=== PATIENT | male | born 1955 | race Caucasian/White ===

== ENCOUNTER 2017-02-05 07:57 | Day surgery (SDC) | payer BC ==
[~2017-02-05 07:57] MED LIST: Lactated Ringers 1,000 ML IV SCH; Lidocaine 1%/Sod Bicarbonate in NS 8.4% 1 ML Syringe PRN; Sodium Chloride 0.9% 10 ML Syringe FLUSH PRN
[2017-02-05] MEDS ORDERED: EPINEPHrine 1 MG/ML 30 ML MDV ONE (08:06)
[2017-02-05] MEDS ORDERED: Bupivacaine 0.25% 30 ML SDV ONE (08:06)
--- NOTE | 2017-02-05 08:17 | PCM.PREANE ---
Preanesthetic Assessment - Procedure Proposed Procedure: Left knee video arthroscopy - Anesthesia/Transfusion/Family Hx Anesthesia History: Prior Anesthesia Without Reaction Family History of Anesthesia Reaction: No (`) Transfusion History: No Prior Transfusion(s) - Review of Systems General: No Symptoms Pulmonary: No Symptoms Cardiovascular: No Symptoms Gastrointestinal: No symptoms Neurological: No Symptoms Other: Reports: None - Physical Assessment NPO Status Date: 02/04/17 NPO Status Time: 22:00 Pulse: 62 O2 Sat by Pulse Oximetry: 96 Respiratory Rate: 16 Blood Pressure: 151/88 Temperature: 36.7 C Height: 1.83 m Weight: 97.522 kg ASA Class: 2 Mental Status: Alert & Oriented x3 Airway Class: Mallampati = 1 Dentition: Reports: Normal Dentition Thyro-Mental Finger Breadths: 3 Mouth Opening Finger Breadths: 3 ROM/Head Extension: Full Lungs: Clear to auscultation, Normal respiratory effort Cardiovascular: Regular Rate, Regular Rhythm - Lab Values: Laboratory Last Values MRSA (PCR) Negative 01/20/17 09:17 - Allergies Allergies/Adverse Reactions: Allergies Allergy/AdvReac Type Severity Reaction Status Date / Time No Known Allergies Allergy Verified 02/04/17 12:34 - Blood Blood Available: No - Anesthesia Plan Pre-Op Medication Ordered: None - Acknowledgements Anesthesia Type Planned: General Anesthesia Pt an Appropriate Candidate for the Planned Anesthesia: Yes Alternatives and Risks of Anesthesia Discussed w Pt/Guardian: Yes Pt/Guardian Understands and Agrees with Anesthesia Plan: Yes PreAnesthesia Questionnaire - Past Health History Medical/Surgical History: Denies Medical/Surgical History HEENT History: Reports: None Cardiovascular History: Reports: None Respiratory History: Reports: None Gastrointestinal History: Reports: None Genitourinary History: Reports: None Neurological History: Reports: None Psychiatric History: Reports: None Endocrine/Metabolic History: Reports: None Hematologic History: Reports: None Immunologic History: Reports: None Oncologic (Cancer) History: Reports: None Dermatologic History: Reports: Cellulitis - Infectious Disease History Infectious Disease History: Reports: None - Past Surgical History HEENT Surgical History: Reports: None Cardiovascular Surgical History: Reports: None Respiratory Surgical History: Reports: None GI Surgical History: Reports: None Female Surgical History: Male Surgical History: Reports: None Endocrine Surgical History: Reports: None Neurological Surgical History: Reports: None Musculoskeletal Surgical History: Reports: Arthroscopic Knee, Shoulder Surgery Other Musculoskeletal Surgeries/Procedures:: Right knee video arthroscopy, Left shoulder arthroscopy Oncologic Surgical History: Reports: None Dermatological Surgical History: Reports: None - SUBSTANCE USE Smoking Status *Q: Never Smoker Second Hand Smoke Exposure: No Recreational Drug Use History: No - HOME MEDS Home Medications: Home Meds . [No Known Home Meds] 06/27/16 [History] - CURRENT (IN HOUSE) MEDS Current Meds: Current Medications Lactated Ringer's (Ringers, Lactated) 1,000 mls @ 125 mls/hr IV ASDIRECTED PAMELA Stop: 02/05/17 23:00 Lidocaine/Sodium Bicarbonate (Buffered Lidocaine 1% In Ns 8.4%) 0.25 ml .XX ONETIME PRN PRN Reason: Prior to IV Start Stop: 02/05/17 18:00 Sodium Chloride (Saline Flush) 10 ml FLUSH ASDIRECTED PRN PRN Reason: Keep Vein Open Stop: 02/05/17 18:00
[2017-02-05] MEDS ORDERED: Propofol 200 MG/20 ML SDV ONE (08:44)
[2017-02-05] MEDS ORDERED: fentaNYL 250 MCG/5 ML SDV ONE (08:44)
[2017-02-05] MEDS ORDERED: Midazolam 1 MG/ML 2 ML SDV ONE (08:44)
[2017-02-05] MEDS ORDERED: Dexamethasone 4 MG/ML SDV ONE (08:45)
[2017-02-05] MEDS ORDERED: Lidocaine 1% 4 ML ONE (08:45)
[2017-02-05] MEDS ORDERED: Ondansetron 4 MG/2 ML SDV ONE (08:45)
[2017-02-05] MEDS ORDERED: ceFAZolin 1 GM Vial ONE (08:46)
[2017-02-05] MEDS ORDERED: ePHEDrine/Normal Saline 25 MG/5 ML Syringe ONE (09:18)
[2017-02-05] MEDS ORDERED: Triamcinolone Acetonide 40 MG/ML 1 ML MDV ONE (09:20)
--- NOTE | 2017-02-05 09:51 | PCM.POSTAN ---
POST ANESTHESIA ASSESSMENT - MENTAL STATUS Mental Status: alert, oriented - VITAL SIGNS Pulse Rate: 80 SaO2: 97 Resp Rate: 11 Blood Pressure: 142/87 Temperature: 37.2 C - RESPIRATORY Respiratory Status: respiratory rate WNL, airway patent, O2 saturation stable, supplemental oxygen - CARDIOVASCULAR CV Status: pulse rate WNL, blood pressure stable - GASTROINTESTINAL GI Status: no symptoms - PAIN Pain Score: 0 - POST OP HYDRATION Hydration Status: adequate & stable
[2017-02-05] MEDS ORDERED: Ondansetron 4 MG/2 ML SDV IVPUSH PRN (09:52)
[2017-02-05] MEDS ORDERED: Meperidine PF 50 MG/ML Syringe IVPUSH PRN (09:52)
[2017-02-05] MEDS ORDERED: fentaNYL 100 MCG/2 ML SDV IVPUSH PRN (09:52)
[2017-02-05] MEDS ORDERED: diphenhydrAMINE 50 MG/ML SDV IVPUSH PRN (09:52)
[2017-02-05] MEDS ORDERED: HYDROmorphone 0.5 MG/0.5 ML Syringe IVPUSH PRN (09:52)
[2017-02-05 11:11] VITALS: BP 137/69
[2017-02-05] MEDS ORDERED: Acetaminophen/HYDROcodone 325-5 MG Tab PO ONE (11:40)
--- NOTE | 2017-02-06 07:31 | PCM.OPNOTE ---
- General Post-Op/Procedure Note Date of Surgery/Procedure: 02/05/17 Operative Procedure(s): left knee arthroscopy with partial medial meniscectomy Pre Op Diagnosis: left knee medial meniscus tear Post-Op Diagnosis: same with chondrocalcinosis of medial and lateral tibial plateau and meniscus Anesthesia Technique: General LMA, Local Primary Surgeon: John Llanes Anesthesia Provider: Jake Bragg Bridge Welder: Rubina Forrest EBAndrea in mLs: 5 Complications: None Condition: Good
--- NOTE | 2017-02-06 08:02 | OR ---
DATE OF OPERATION: 02/05/2017 SURGEON: John Llanes MD OPERATION PERFORMED: Left knee arthroscopy with partial medial meniscectomy. PREOPERATIVE DIAGNOSIS: Left knee medial meniscus tear. POSTOPERATIVE DIAGNOSIS: Left knee medial meniscus tear with chondrocalcinosis of medial and lateral tibial plateaus and meniscus. ANESTHESIA: General LMA with local. ANESTHESIA PROVIDER: Jake Bragg. DISSOLVER OPERATOR: Rubina Forrest PA-C ESTIMATED BLOOD LOSS: Less than 5 mL. COMPLICATIONS: None. CONDITION: Stable. DESCRIPTION OF PROCEDURE: The patient was identified in the preop holding area. Proper site was marked and identified by the surgeon. The patient was taken back to the operating theater, where after adequate anesthesia, the patient's right lower extremity was placed in a well-leg hoyt and left lower extremity was placed in a C-clamp hoyt, and a nonsterile tourniquet was applied. The left lower extremity was then sterilely prepped and draped in the usual sterile fashion. OR-wide time- out was performed. The patient received 2 grams of IV Ancef. At this time, the left lower extremity was exsanguinated. Tourniquet was insufflated to 300 mmHg. Standard anterolateral portal incision was made. The scope trocar was introduced. The patellofemoral joint showed minor grade 1 chondromalacia changes. There were no loose or foreign bodies in the mediolateral gutter. Attention was turned to the medial compartment. With the use of a spinal needle, anteromedial portal was created. The probe was introduced, and there was noted to be a complete radial tear at the posterior third junction of the medial meniscus that was unstable and irreparable. At this time, the posterior third of the medial meniscus was removed back to a stable rim. The patient was noted to have softening of the medial tibial plateau as well as some chondrocalcinosis. ACL was found to be intact in the notch. Lateral side showed chondrocalcinosis of the lateral tibial plateau as well as the lateral meniscus. At this time, a minor amount of fat pad was resected back to a stable rim as it showed significant overgrowth. Excess saline was drained from the knee. A 3-0 nylon simple suture was used for closure of the skin. The patient had a sterile soft dressing applied and tolerated the procedure well. MMODAL /[id number]
== END 2017-02-05 11:01 | disposition home or self-care (01) ==
LOC: JD.SDS 07:57
PROVIDERS: ATTEND Orthopaedic Surgery
PROC: 0SBD4ZZ Excision of Left Knee Joint, Percutaneous Endoscopic Approach (ICD-10-PCS; principal; 2017-02-05)
DX: S83.242A Other tear of medial meniscus, current injury, left knee, initial encounter (principal); M11.262 Other chondrocalcinosis, left knee; Z98.890 Other specified postprocedural states
CPT/HCPCS: 29881; 87641; J0171; J0690; J1100; J2250; J2405; J3010; J3301; J7050; J7120; 01400; J2704; J3490

== ENCOUNTER 2017-02-17 11:03 | Day surgery (SDC) | payer BC ==
[2017-02-17] MEDS ORDERED: EPINEPHrine 1 MG/ML 30 ML MDV ONE (11:13)
[2017-02-17] MEDS ORDERED: Bupivacaine 0.25% 30 ML SDV ONE (11:13)
[2017-02-17] MEDS ORDERED: Iodine/Sodium Iodide 2% Tincture 30 ML Bottle ONE (11:13)
--- NOTE | 2017-02-17 11:31 | PCM.PREANE ---
Preanesthetic Assessment - Anesthesia/Transfusion/Family Hx Anesthesia History: Prior Anesthesia Without Reaction Family History of Anesthesia Reaction: No Transfusion History: No Prior Transfusion(s) - Review of Systems General: Malaise Pulmonary: No Symptoms Cardiovascular: No Symptoms Gastrointestinal: No symptoms Neurological: No Symptoms Other: Reports: None - Physical Assessment NPO Status Date: 02/17/17 NPO Status Time: 07:30 Pulse: 65 O2 Sat by Pulse Oximetry: 97 Respiratory Rate: 16 Blood Pressure: 150/80 Temperature: 36.9 C Height: 1.83 m Weight: 96.751 kg ASA Class: 2 Mental Status: Alert & Oriented x3 Airway Class: Mallampati = 1 Dentition: Reports: Broken Tooth/Teeth (left molar) Thyro-Mental Finger Breadths: 3 Mouth Opening Finger Breadths: 3 ROM/Head Extension: Full Lungs: Clear to auscultation, Normal respiratory effort Cardiovascular: Regular Rate, Regular Rhythm, No Murmurs - Allergies Allergies/Adverse Reactions: Allergies Allergy/AdvReac Type Severity Reaction Status Date / Time No Known Allergies Allergy Verified 02/05/17 08:32 - Blood Blood Available: No Product(s) Available: None - Anesthesia Plan Pre-Op Medication Ordered: None - Acknowledgements Anesthesia Type Planned: General Anesthesia Pt an Appropriate Candidate for the Planned Anesthesia: Yes Alternatives and Risks of Anesthesia Discussed w Pt/Guardian: Yes Pt/Guardian Understands and Agrees with Anesthesia Plan: Yes PreAnesthesia Questionnaire - Past Health History Medical/Surgical History: Denies Medical/Surgical History HEENT History: Reports: None Cardiovascular History: Reports: None Respiratory History: Reports: None Gastrointestinal History: Reports: None Genitourinary History: Reports: None Neurological History: Reports: None Psychiatric History: Reports: None Endocrine/Metabolic History: Reports: None Hematologic History: Reports: None Immunologic History: Reports: None Oncologic (Cancer) History: Reports: None Dermatologic History: Reports: Cellulitis - Infectious Disease History Infectious Disease History: Reports: None - Past Surgical History HEENT Surgical History: Reports: None Cardiovascular Surgical History: Reports: None Respiratory Surgical History: Reports: None GI Surgical History: Reports: None Male Surgical History: Reports: None Endocrine Surgical History: Reports: None Neurological Surgical History: Reports: None Musculoskeletal Surgical History: Reports: Arthroscopic Knee, Shoulder Surgery Other Musculoskeletal Surgeries/Procedures:: Right knee video arthroscopy, Left shoulder arthroscopy Oncologic Surgical History: Reports: None Dermatological Surgical History: Reports: None - SUBSTANCE USE Smoking Status *Q: Never Smoker Second Hand Smoke Exposure: No Days Per Week of Alcohol Use: 1 Number of Drinks Per Day: 1 Total Drinks Per Week: 1 Recreational Drug Use History: No - HOME MEDS Home Medications: Home Meds Hydrocodone/Acetaminophen [[place] 5-325 Tablet] 1 - 2 each PO Q6H PRN #40 tablet 02/05/17 [Rx] Aspirin 325 mg PO BID #84 tablet 02/06/17 [Rx]
[2017-02-17] MEDS ORDERED: Lidocaine 1%/Sod Bicarbonate in NS 8.4% 1 ML Syringe PRN (11:41)
[2017-02-17] MEDS ORDERED: Sodium Chloride 0.9% 10 ML Syringe FLUSH PRN (11:41)
[2017-02-17] MEDS ORDERED: Lactated Ringers 1,000 ML IV SCH (11:45)
[2017-02-17] MEDS ORDERED: Ondansetron 4 MG/2 ML SDV ONE (11:57)
[2017-02-17] MEDS ORDERED: Propofol 200 MG/20 ML SDV ONE (11:58)
[2017-02-17] MEDS ORDERED: Lidocaine 1% 4 ML ONE (11:58)
[2017-02-17] MEDS ORDERED: Midazolam 1 MG/ML 2 ML SDV ONE (11:58)
[2017-02-17] MEDS ORDERED: fentaNYL 250 MCG/5 ML SDV ONE (11:58)
[2017-02-17] MEDS ORDERED: HYDROmorphone 1 MG/ML Syringe ONE (12:53)
[2017-02-17] MEDS ORDERED: Ketorolac 30 MG/ML SDV IVPUSH PRN (13:38)
--- NOTE | 2017-02-17 13:40 | PCM.POSTAN ---
POST ANESTHESIA ASSESSMENT - MENTAL STATUS Mental Status: alert, oriented - VITAL SIGNS Pulse Rate: 83 SaO2: 94 Resp Rate: 14 Blood Pressure: 165/96 Temperature: 36.6 C - RESPIRATORY Respiratory Status: respiratory rate WNL, airway patent, O2 saturation stable, supplemental oxygen - CARDIOVASCULAR CV Status: pulse rate WNL, blood pressure stable - GASTROINTESTINAL GI Status: no symptoms - PAIN Pain Score: 2 - POST OP HYDRATION Hydration Status: adequate & stable - OBSERVATIONS Free Text/Narrative:: no anesthesia complications noted
[2017-02-17] MEDS ORDERED: fentaNYL 100 MCG/2 ML SDV IVPUSH PRN (13:45)
[2017-02-17] MEDS ORDERED: HYDROmorphone 0.5 MG/0.5 ML Syringe IVPUSH PRN (13:45)
[2017-02-17 16:38] VITALS: BP 146/82
--- NOTE | 2017-02-17 16:57 | CR ---
Chest: Portable view of the chest was obtained. Comparison: No previous study. PICC line is identified. PICC descends into a lateral thoracic vein and needs to be withdrawn hand repositioned. Distal end of the PICC line is not seen. Lungs are clear. Heart size and mediastinum are normal. No acute bony abnormality is seen. Impression: 1. PICC line on the right side which terminates within a lateral thoracic vein and needs to be withdrawn and repositioned. Diagnostic code #3
--- NOTE | 2017-02-17 17:46 | CR ---
Chest: Portable view of the chest was obtained. Comparison: Previous chest x-ray performed earlier on the same day (4:28 PM). Right-sided PICC line is seen which has been repositioned. Tip of PICC line now lies near the junction of the subclavian and right axillary vein. Chest remains unchanged. Impression: 1. Tip of PICC line at the junction of the subclavian right axillary vein. Diagnostic code #2
--- NOTE | 2017-02-17 18:49 | PCM.SN ---
- Free Text/Narrative Note: 02/17/2117 1832 1536 consent given for PICC line placement. Sterile prep and drape all persons with face mask and sterile gloves wearing sterile gown, gloves, hat, mask Picc line placed left upper arm unable to advance past clavicle move to right upper arm Picc line advanced to 54cm at skin. Chest X ray shows that Picc line double back in right upper arm. Pulled out 20cm and secured with stitches at 35 cm. Patient getting dressed when Picc line oozing blood at insertion site. Redressed and secured with suture tape and stitches. Picc line now at 31cm at skin. sterile dressing with bio gel timed and dated. Picc line confirmed placement at clavicle. Good blood return and flush with 10ml of saline. Procedure start 1536 and end at 1634. 20 ga. angio cath used to start procedure. Dilator used to thread the Picc line. Patient tolerated procedure well. No complains of. A [place] NXT 4F single lumen Ref [id number] Patient ready to be discharged
--- NOTE | 2017-02-19 22:56 | PCM.OPNOTE ---
- General Post-Op/Procedure Note Date of Surgery/Procedure: 02/17/17 Operative Procedure(s): left knee extensive synovectomy with irrigation Pre Op Diagnosis: septic left knee s/p arthroscopy Post-Op Diagnosis: Same Anesthesia Technique: General LMA Primary Surgeon: John Llanes Anesthesia Provider: Hero Scott Sightseeing Guide: Rubina Forrest in mLs: 10 Complications: None Condition: Good
--- NOTE | 2017-02-19 23:28 | OR ---
DATE OF OPERATION: 02/17/2017 SURGEON: John Llanes MD OPERATION PERFORMED: Left knee extensive synovectomy with irrigation and lavage. PREOPERATIVE DIAGNOSIS: Septic left knee arthritis, status post left knee arthroscopy. POSTOPERATIVE DIAGNOSIS: Septic left knee arthritis, status post left knee arthroscopy. ANESTHESIA: General LMA. ANESTHESIA PROVIDER: Hero Scott CRNA. HAND SIZER: Rubina Forrest PA-C. ESTIMATED BLOOD LOSS: 10 mL. COMPLICATIONS: None. CONDITION: Stable. DESCRIPTION OF PROCEDURE: The patient was identified in the preop holding area. Proper site was marked and identified by the surgeon. The patient was taken back to the operating theater where after adequate anesthesia, the patient's left lower extremity had a nonsterile tourniquet applied and was sterilely prepped and draped in the usual sterile fashion. OR time-out was performed. The patient received 2 g IV Ancef. The patient was on the supine table this time instead of within knee arthroscopy hoyt. At this time, left lower extremity was elevated and tourniquet was insufflated at 250 mmHg. The previous portal incisions were then incised and scope trocar was introduced. A posterolateral portal was then created for an outflow and there was noted to be significant synovitis with a small amount of purulence, although there was previous aspiration that had gotten out significant amount of purulent fluid. At this time, 9 L of saline were irrigated through the knee through all compartments and a near complete synovectomy was performed at this time, both the suprapatellar pouch and the fat pad and as best could be completed in the gutters as well. At this time, there was good bleeding in all of the tissues and once 9 L had been rinsed, the knee showed no signs of further synovitis. At this time, 3-0 nylon simple suture was used for closure of the skin. The patient had a sterile soft dressing applied and sent to PACU in stable condition. The patient will undergo IV antibiotics for at least 2 weeks, and then be switched to oral depending on sensitivities. MMODAL /[id number]
== END 2017-02-17 18:00 | disposition home or self-care (01) ==
LOC: JD.SDS 11:03
PROVIDERS: ATTEND Orthopaedic Surgery
DX: M00.9 Pyogenic arthritis, unspecified (principal); Z98.890 Other specified postprocedural states; Z79.82 Long term (current) use of aspirin; Z79.899 Other long term (current) drug therapy
CPT/HCPCS: 29876; 36415; 80053; 85025; 85652; 86140; 87070; 87205; 89050; 89060; J0171; J1170; J1885; J2250; J2405; J3010; J7120; 01400; 36569; 87077; 87186; A9270-GY; C1751; J2704; J3490

== ENCOUNTER 2017-03-30 06:55 | Day surgery (SDC) | payer BC ==
[2017-03-30] MEDS ORDERED: Propofol 200 MG/20 ML SDV ONE (07:34)
[2017-03-30] MEDS ORDERED: fentaNYL 250 MCG/5 ML SDV ONE (07:35)
[2017-03-30] MEDS ORDERED: Midazolam 1 MG/ML 2 ML SDV ONE (07:35)
[2017-03-30] MEDS ORDERED: Ondansetron 4 MG/2 ML SDV ONE (07:36)
[2017-03-30] MEDS ORDERED: Lidocaine 1% 4 ML ONE (07:36)
[2017-03-30] MEDS ORDERED: Dexamethasone 4 MG/ML 5 ML MDV ONE (07:37)
[2017-03-30] MEDS ORDERED: Bupivacaine 0.25% 10 ML SDV ONE (07:39)
[2017-03-30] MEDS ORDERED: EPINEPHrine 1 MG/ML 30 ML MDV ONE (07:40)
--- NOTE | 2017-03-30 07:47 | PCM.PREANE ---
Preanesthetic Assessment - Procedure Proposed Procedure: L knee video arthroscopy, lysis of adhesions with manipulation under anesthesia - Anesthesia/Transfusion/Family Hx Anesthesia History: Prior Anesthesia Without Reaction Family History of Anesthesia Reaction: No Transfusion History: No Prior Transfusion(s) Additional History: watching a slightly elevated creatinine (1.5) - Review of Systems General: No Symptoms Pulmonary: No Symptoms Cardiovascular: No Symptoms Gastrointestinal: No Symptoms Neurological: No Symptoms Other: Reports: None - Physical Assessment NPO Status Date: 03/29/17 NPO Status Time: 22:00 Pulse: 55 O2 Sat by Pulse Oximetry: 98 Respiratory Rate: 16 Blood Pressure: 135/77 Temperature: 36.9 C Height: 1.83 m Weight: 96.751 kg ASA Class: 2 Mental Status: Alert & Oriented x3 Airway Class: Mallampati = 1 Dentition: Reports: Normal Dentition Thyro-Mental Finger Breadths: 3 Mouth Opening Finger Breadths: 3 ROM/Head Extension: Full Lungs: Clear to Auscultation, Normal Respiratory Effort Cardiovascular: Regular Rate, Regular Rhythm - Lab Values: Laboratory Last Values MRSA (PCR) Negative 03/20/17 11:14 - Allergies Allergies/Adverse Reactions: Allergies Allergy/AdvReac Type Severity Reaction Status Date / Time No Known Allergies Allergy Verified 03/27/17 09:02 - Blood Blood Available: No Product(s) Available: None - Anesthesia Plan Pre-Op Medication Ordered: None - Acknowledgements Anesthesia Type Planned: General Anesthesia (LMA) Pt an Appropriate Candidate for the Planned Anesthesia: Yes Alternatives and Risks of Anesthesia Discussed w Pt/Guardian: Yes Pt/Guardian Understands and Agrees with Anesthesia Plan: Yes PreAnesthesia Questionnaire - Past Health History Medical/Surgical History: Denies Medical/Surgical History HEENT History: Reports: None Cardiovascular History: Reports: None Respiratory History: Reports: None Gastrointestinal History: Reports: None Genitourinary History: Reports: None Musculoskeletal History: Reports: Other (See Below) Other Musculoskeletal History: Left meniscus tear Neurological History: Reports: None Psychiatric History: Reports: None Endocrine/Metabolic History: Reports: None Hematologic History: Reports: None Immunologic History: Reports: None Oncologic (Cancer) History: Reports: None Dermatologic History: Reports: Cellulitis - Infectious Disease History Infectious Disease History: Reports: None - Past Surgical History Head Surgeries/Procedures: Reports: None HEENT Surgical History: Reports: None Cardiovascular Surgical History: Reports: None Respiratory Surgical History: Reports: None GI Surgical History: Reports: None Female Surgical History: Male Surgical History: Reports: None Endocrine Surgical History: Reports: None Musculoskeletal Surgical History: Reports: Other (See Below) Other Musculoskeletal Surgeries/Procedures:: Left knee video arthroscopy with meniscectomy, shoulder surgery Dermatological Surgical History: Reports: None - SUBSTANCE USE Smoking Status *Q: Never Smoker Tobacco Use Within Last Twelve Months: No Second Hand Smoke Exposure: No Days Per Week of Alcohol Use: 1 Number of Drinks Per Day: 1 Total Drinks Per Week: 1 Recreational Drug Use History: No - HOME MEDS Home Medications: Home Meds Hydrocodone/Acetaminophen [[place] 5-325 Tablet] 1 - 2 each PO Q6H PRN #40 tablet 03/30/17 [Rx] Aspirin 325 mg PO BID #60 tablet 03/31/17 [Rx] - CURRENT (IN HOUSE) MEDS Current Meds: Current Medications Lactated Ringer's (Ringers, Lactated) 1,000 mls @ 125 mls/hr IV ASDIRECTED PAMELA Stop: 03/30/17 23:00 Last Admin: 03/30/17 07:30 Dose: 125 mls/hr Lidocaine/Sodium Bicarbonate (Buffered Lidocaine 1% In Ns 8.4%) 0.25 ml .XX ONETIME PRN PRN Reason: Prior to IV Start Stop: 03/30/17 18:00 Last Admin: 03/30/17 07:29 Dose: 0.25 ml Sodium Chloride (Saline Flush) 10 ml FLUSH ASDIRECTED PRN PRN Reason: Keep Vein Open Stop: 03/30/17 18:00 Discontinued Medications Bupivacaine HCl (Sensorcaine-Mpf 0.25%) Confirm Administered Dose 10 ml .ROUTE .STK-MED ONE Stop: 03/30/17 07:40 Dexamethasone (Dexamethasone) Confirm Administered Dose 20 mg .ROUTE .STK-MED ONE Stop: 03/30/17 07:38 Epinephrine HCl (Adrenalin 1:1000) Confirm Administered Dose 30 mg .ROUTE .STK- MED ONE Stop: 03/30/17 07:41 Fentanyl (Sublimaze) Confirm Administered Dose 250 mcg .ROUTE .STK-MED ONE Stop: 03/30/17 07:36 Lidocaine HCl (Xylocaine-Mpf 1%) Confirm Administered Dose 4 mls @ as directed .ROUTE .STK-MED ONE Stop: 03/30/17 07:37 Midazolam HCl (Versed 1 Mg/Ml) Confirm Administered Dose 2 mg .ROUTE .STK-MED ONE Stop: 03/30/17 07:36 Ondansetron HCl (Zofran) Confirm Administered Dose 4 mg .ROUTE .STK-MED ONE Stop: 03/30/17 07:37 Propofol (Diprivan 20 Ml) Confirm Administered Dose 200 mg .ROUTE .STK-MED ONE Stop: 03/30/17 07:35
[2017-03-30] MEDS ORDERED: ceFAZolin 1 GM Vial ONE (08:22)
[2017-03-30] MEDS ORDERED: HYDROmorphone 1 MG/ML Syringe ONE (08:33)
--- NOTE | 2017-03-30 09:25 | PCM.POSTAN ---
POST ANESTHESIA ASSESSMENT - MENTAL STATUS Mental Status: Alert, Oriented - VITAL SIGNS Pulse Rate: 92 SaO2: 100 Resp Rate: 10 Blood Pressure: 166/108 (shivering) Temperature: 36.6 C - RESPIRATORY Respiratory Status: Respiratory Rate WNL, Airway Patent, O2 Saturation Stable, Supplemental Oxygen - CARDIOVASCULAR CV Status: Pulse Rate WNL, Blood Pressure Stable - GASTROINTESTINAL GI Status: No Symptoms - PAIN Pain Score: 5 (fentanyl given) - POST OP HYDRATION Hydration Status: Adequate & Stable
[2017-03-30] MEDS ORDERED: Ondansetron 4 MG/2 ML SDV IVPUSH PRN (09:27)
[2017-03-30] MEDS ORDERED: diphenhydrAMINE 50 MG/ML SDV IVPUSH PRN (09:27)
[2017-03-30] MEDS ORDERED: Meperidine PF 50 MG/ML Syringe IVPUSH PRN (09:27)
[2017-03-30] MEDS ORDERED: Acetaminophen/HYDROcodone 325-5 MG Tab PO SCH (10:00)
[2017-03-30] MEDS ORDERED: fentaNYL 100 MCG/2 ML SDV IVPUSH PRN (10:30)
[2017-03-30] MEDS ORDERED: HYDROmorphone 0.5 MG/0.5 ML Syringe IVPUSH PRN (10:30)
[2017-03-30 11:39] VITALS: BP 152/78
--- NOTE | 2017-03-30 14:57 | PCM48HPAN ---
Post Anesthesia Note - EVALUATION WITHIN 48HRS OF ANESTHETIC Vital Signs in Normal Range: Yes Patient Participated in Evaluation: Yes Respiratory Function Stable: Yes Airway Patent: Yes Cardiovascular Function Stable: Yes Hydration Status Stable: Yes Pain Control Satisfactory: Yes Nausea and Vomiting Control Satisfactory: Yes Mental Status Recovered: Yes
--- NOTE | 2017-04-02 11:56 | PCM.OPNOTE ---
- General Post-Op/Procedure Note Date of Surgery/Procedure: 03/30/17 Operative Procedure(s): left knee video arthroscopy with lysis of adhesions and left knee manipulation under anesthesia Pre Op Diagnosis: left knee arthrofibrosis Post-Op Diagnosis: same with grade 2/3 chondromalacia of the patella and medial compartment Anesthesia Technique: General LMA Primary Surgeon: John Llanes Anesthesia Provider: Jake Bragg EBL in mLs: 5 Complications: None Condition: Good
--- NOTE | 2017-04-02 12:33 | OR ---
DATE OF OPERATION: 03/30/2017 SURGEON: John Llanes MD OPERATION PERFORMED: Left knee video arthroscopy with lysis of adhesions and left knee manipulation under anesthesia. PREOPERATIVE DIAGNOSIS: Left knee arthrofibrosis. POSTOPERATIVE DIAGNOSIS: Left knee arthrofibrosis with grade 2/3 chondromalacia of the patella and medial compartment. ANESTHESIA: General LMA. ANESTHESIA PROVIDER: Jake Bragg. GREEN MEAT GRADER: None. ESTIMATED BLOOD LOSS: Less than 5 mL. COMPLICATIONS: None. CONDITION: Stable. DESCRIPTION OF PROCEDURE: The patient was identified in the preop holding area. Proper site was marked and identified by the surgeon. The patient was taken back to the operating theater, where after adequate anesthesia, the patient's right lower extremity was placed in a well-leg hoyt and the left lower extremity had a nonsterile tourniquet applied and then was placed in a C-clamp hoyt. The left lower extremity was then sterilely prepped and draped in the usual sterile fashion. OR-wide time-out was performed. The patient received 2 grams of IV Ancef. At this time, the left lower extremity was exsanguinated. Tourniquet was insufflated to 250 mmHg. The previous anterolateral portal incision was utilized again. Scope trocar was introduced. There was noted to be a large amount of adhesions noted in the suprapatellar pouch as well as the medial compartment and near the retropatellar fat pad. At this time, the anteromedial portal was created. There was noted to be grade 2/3 chondromalacia of the patellofemoral joint along with the medial compartment. There were no loose or foreign bodies. At this time, the full-radius resector was used for the lysis of adhesions in the suprapatellar pouch and near the fat pad as well as the medial and lateral gutter. Once it was found to be significantly removed, the cursory examination showed, again, the chondromalacia, but there were no signs of purulence throughout the knee. At this time, the scope trocar was removed. The patient's knee was then manipulated. The patient had full extension and had 125 degrees of flexion by the time it was fully manipulated. Sterile dressing was then placed after 3-0 nylon simple suture was used for closure of the skin. The patient was sent to the PACU in a stable condition. He tolerated the procedure well. MMODAL /[id number]
== END 2017-03-30 11:25 | disposition home or self-care (01) ==
LOC: JD.SDS 06:55
PROVIDERS: ATTEND Orthopaedic Surgery
DX: M24.662 Ankylosis, left knee (principal); M22.42 Chondromalacia patellae, left knee; Z98.890 Other specified postprocedural states
CPT/HCPCS: 29884; 87641; J0171; J0690; J1100; J1170; J2250; J2405; J3010; J7120; 01400; J2704

== ENCOUNTER 2018-04-20 10:58 | Emergency (ER) | payer BC ==
[2018-04-20] MEDS ORDERED: Sodium Chloride 0.9% 10 ML Syringe FLUSH PRN ×2 (11:49→13:22)
--- NOTE | 2018-04-20 11:50 | EDM.PDOC ---
ED HPI GENERAL MEDICAL PROBLEM - General Chief Complaint: Upper Extremity Injury/Pain Stated Complaint: LEFT ARM/SHOULDER PAIN POST SURGERY Time Seen by Provider: 04/20/18 11:40 Source of Information: Reports: Patient History Limitations: Reports: No Limitations - History of Present Illness INITIAL COMMENTS - FREE TEXT/NARRATIVE: 63-year-old male presents for evaluation and treatment of left shoulder pain. Patient had a meniscal repair to the right knee [address] Llanes[address] He followed up with Jessica Forrest today. He informed her of some chest pain he felt Thursday. He states that it "felt like an MD ." he reports that he took some Tylenol and iced the area. He attributed this to golfing on Thursday. He reports Thursday he felt better. He states the chest pain he felt on Thursday was on the left lateral chest. He is now appreciated pain to his left anterior shoulder. His only present when breathing. Reports that he was seen for his follow-up with Jessica Forrest today. She performed full range of motion to the shoulder and could not elicit any pain. Sent to the ED for rule out PE. Patient denies any chest pain currently. He states he only has pain to the left anterior shoulder with deep breathing. No shortness of breath, nausea, vomiting , lightheadedness, dizziness, syncope, cough, hemoptysis or diaphoresis. No recent fevers, cold symptoms. Patient reports he did have some swelling in the right foot after surgery. Removed the Lincoln bandage and that seem to resolve the swelling. Minor discomfort to the leg, no major pain to the calf. No history of any PE or DVT blood clots. No known family history of any clotting disorders. He he has been taking 2 325 milligram aspirin daily since the surgery. 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 Musculoskeletal History: Reports: Other (See Below) Other Musculoskeletal History: Left meniscus tear Neurological History: Reports: None Psychiatric History: Reports: None Endocrine/Metabolic History: Reports: None Hematologic History: Reports: None Immunologic History: Reports: None Oncologic (Cancer) History: Reports: None Dermatologic History: Reports: Cellulitis - Infectious Disease History Infectious Disease History: Reports: None - Past Surgical History Head Surgeries/Procedures: Reports: None HEENT Surgical History: Reports: None Cardiovascular Surgical History: Reports: None Respiratory Surgical History: Reports: None GI Surgical History: Reports: None Male Surgical History: Reports: None Endocrine Surgical History: Reports: None Neurological Surgical History: Reports: None Musculoskeletal Surgical History: Reports: Arthroscopic Knee, Shoulder Surgery Other Musculoskeletal Surgeries/Procedures:: Right and left knee video arthroscopy, Left shoulder arthroscopy Oncologic Surgical History: Reports: None Dermatological Surgical History: Reports: None Social & Family History - Family History Family Medical History: Noncontributory - Tobacco Use Smoking Status *Q: Never Smoker - Caffeine Use Caffeine Use: Reports: None - Recreational Drug Use Recreational Drug Use: No Review of Systems - Review of Systems Review Of Systems: See Below Constitutional: Denies: Diaphoresis, Fever Respiratory: Denies: Shortness of Breath, Cough, Sputum, Hemoptysis Cardiovascular: Reports: Chest Pain (Thursday left lateral chest). Denies: Lightheadedness, Syncope GI/Abdominal: Denies: Abdominal Pain, Nausea, Vomiting Musculoskeletal: Reports: Shoulder Pain (Left anterior shoulder), Joint Pain ( Recent right meniscal repair surgery done about 2 weeks ago. Parents pain to the knee). Denies: Neck Pain, Leg Pain (No pain to the right calf, initially experienced swelling to the right foot that resolved after removal of an Lincoln bandage.) Neurological: Denies: Seizure, Syncope ED EXAM, GENERAL - Physical Exam Exam: See Below Exam Limited By: No Limitations General Appearance: Alert, WD/WN, No Apparent Distress Eye Exam: Bilateral Eye: Normal Inspection Nose: Normal Inspection Throat/Mouth: Normal Inspection, Normal Lips, Normal Voice, No Airway Compromise Neck: Normal Inspection, Non-Tender, Full Range of Motion Respiratory/Chest: No Respiratory Distress, Lungs Clear, Normal Breath Sounds, Chest Non-Tender Cardiovascular: Normal Peripheral Pulses, Regular Rate, Rhythm, No Murmur GI/Abdominal: Soft, Non-Tender Extremities: Normal Inspection, Non-Tender (lef shoulder), Normal Capillary Refill, Other (Scars from the recent meniscal repair surgery to the right knee) . No: Espinoza's Sign Neurological: Alert, Oriented, Normal Cognition Psychiatric: Normal Affect, Normal Mood Skin Exam: Warm, Dry, Normal Color EKG INTERPRETATION EKG Date: 04/20/18 Time: 11:45 Rhythm: NSR Rate (Beats/Min): 54 [place]: Normal P-Wave: Present QRS: Normal ST-T: Normal QT: Normal EKG Interpretation Comments: NSR at 54 bpm. No acute changes. Reviewed by myself and Dr. Liu. Course - Vital Signs Last Recorded V/S: Last Vital Signs Temp 98.6 F 04/20/18 11:10 Pulse 79 04/20/18 15:28 Resp 16 04/20/18 15:28 BP 147/105 H 04/20/18 15:28 Pulse Ox 98 04/20/18 15:28 - Orders/Labs/Meds Orders: Active Orders 24 hr Category Date Time Status Cardiac Monitoring [RC] . DIRECTED Care 04/20/18 11:47 Active EKG Documentation Completion [RC] ASDIRECTED Care 04/20/18 11:47 Active Peripheral IV Care [RC] . DIRECTED Care 04/20/18 11:49 Active Peripheral IV Insertion Adult [OM.PC] Routine Oth 04/20/18 11:49 Ordered EKG 12 Lead [EK] Stat Ther 04/20/18 11:47 Ordered Labs: Laboratory Tests 04/20/18 04/20/18 04/20/18 Range/Units 12:10 12:10 12:10 WBC 10.31 H (4.23-9.07) K/mm3 RBC 4.75 (4.63-6.08) M/mm3 Hgb 15.7 (13.7-17.5) gm/L Hct 45.9 (40.1-51.0) % MCV 96.6 H (79.0-92.2) fl MCH 33.1 H (25.7-32.2) pg MCHC 34.2 (32.2-35.5) g/dl RDW Std Deviation 42.3 (35.1-43.9) fL Plt Count 175 (163-337) K/mm3 MPV 11.1 (9.4-12.3) fl Neut % (Auto) 70.7 H (34.0-67.9) % Lymph % (Auto) 18.1 L (21.8-53.1) % Alger % (Auto) 9.1 (5.3-12.2) % Eos % (Auto) 1.4 (0.8-7.0) Baso % (Auto) 0.3 (0.1-1.2) % Neut # (Auto) 7.29 H (1.78-5.38) K/mm3 Lymph # (Auto) 1.87 (1.32-3.57) K/mm3 Alger # (Auto) 0.94 H (0.30-0.82) K/mm3 Eos # (Auto) 0.14 (0.04-0.54) K/mm3 Baso # (Auto) 0.03 (0.01-0.08) K/mm3 PT (9.5-12.1) SECONDS INR APTT (24-31) SECONDS D-Dimer, Quantitative 0.98 H (0.19-0.50) mg/L Sodium 142 (136-145) mEq/L Potassium 4.2 (3.5-5.1) mEq/L Chloride 108 H (98-107) mEq/L Carbon Dioxide 26 (21-32) mEq/L Anion Gap 12.2 (5-15) BUN 23 H (7-18) mg/dL Creatinine 1.4 H (0.7-1.3) mg/dL Est Cr Clr Drug Dosing 59.28 mL/min Estimated GFR (MDRD) 51 (>60) mL/min BUN/Creatinine Ratio 16.4 (14-18) Glucose 106 (80-115) mg/dL Calcium 9.8 (8.5-10.1) mg/dL Total Bilirubin 1.2 H (0.2-1.0) mg/dL AST 21 (15-37) U/L ALT 23 (16-63) U/L Alkaline Phosphatase 79 (46-116) U/L CK-MB (CK-2) (0-3.6) ng/ml Troponin I 0.046 (0.00-0.056) ng/mL NT-Pro-B Natriuret Pep (0-125) pg/mL Total Protein 7.5 (6.4-8.2) g/dl Albumin 3.5 (3.4-5.0) g/dl Globulin 4.0 gm/dL Albumin/Globulin Ratio 0.9 L (1-2) 04/20/18 04/20/18 04/20/18 Range/Units 12:10 12:19 12:19 WBC (4.23-9.07) K/mm3 RBC (4.63-6.08) M/mm3 Hgb (13.7-17.5) gm/L Hct (40.1-51.0) % MCV (79.0-92.2) fl MCH (25.7-32.2) pg MCHC (32.2-35.5) g/dl RDW Std Deviation (35.1-43.9) fL Plt Count (163-337) K/mm3 MPV (9.4-12.3) fl Neut % (Auto) (34.0-67.9) % Lymph % (Auto) (21.8-53.1) % Alger % (Auto) (5.3-12.2) % Eos % (Auto) (0.8-7.0) Baso % (Auto) (0.1-1.2) % Neut # (Auto) (1.78-5.38) K/mm3 Lymph # (Auto) (1.32-3.57) K/mm3 Alger # (Auto) (0.30-0.82) K/mm3 Eos # (Auto) (0.04-0.54) K/mm3 Baso # (Auto) (0.01-0.08) K/mm3 PT 10.2 (9.5-12.1) SECONDS INR 0.93 APTT 27 (24-31) SECONDS D-Dimer, Quantitative (0.19-0.50) mg/L Sodium (136-145) mEq/L Potassium (3.5-5.1) mEq/L Chloride (98-107) mEq/L Carbon Dioxide (21-32) mEq/L Anion Gap (5-15) BUN (7-18) mg/dL Creatinine (0.7-1.3) mg/dL Est Cr Clr Drug Dosing mL/min Estimated GFR (MDRD) (>60) mL/min BUN/Creatinine Ratio (14-18) Glucose (80-115) mg/dL Calcium (8.5-10.1) mg/dL Total Bilirubin (0.2-1.0) mg/dL AST (15-37) U/L ALT (16-63) U/L Alkaline Phosphatase (46-116) U/L CK-MB (CK-2) 0.6 (0-3.6) ng/ml Troponin I (0.00-0.056) ng/mL NT-Pro-B Natriuret Pep 27 (0-125) pg/mL Total Protein (6.4-8.2) g/dl Albumin (3.4-5.0) g/dl Globulin gm/dL Albumin/Globulin Ratio (1-2) Meds: Medications Discontinued Medications Generic Name Dose Route Start Last Admin Trade Name Freq PRN Reason Stop Dose Admin Sodium Chloride 100 mls @ 75 mls/hr 04/20/18 13:30 04/20/18 13:33 Normal Saline IV 75 mls/hr ASDIRECTED PAMELA Administration Iopamidol 50 ml 04/20/18 13:22 04/20/18 13:33 Isovue-370 (76%) IVPUSH 04/20/18 13:23 50 ml ONETIME ONE Administration Iopamidol 100 ml 04/20/18 13:22 04/20/18 13:33 Isovue-370 (76%) IVPUSH 04/20/18 13:23 50 ml ONETIME ONE Administration Rivaroxaban 15 mg 04/20/18 14:58 04/20/18 15:21 Xarelto PO 04/20/18 14:59 15 mg ONETIME ONE Administration Sodium Chloride 10 ml 04/20/18 11:49 04/20/18 12:10 Saline Flush FLUSH 10 ml ASDIRECTED PRN Administration Keep Vein Open Sodium Chloride 10 ml 04/20/18 13:22 04/20/18 13:33 Saline Flush FLUSH 10 ml ONETIME PRN Administration IV FLUSH - Radiology Interpretation Free Text/Narrative:: chest xray shows no acute intrathoracic process. CT chest Technique: Multiple axial sections were obtained through the chest. Intravenous contrast was utilized. Study has been performed as a pulmonary angiogram protocol. Findings: Filling defect is noted within the distal right main pulmonary artery extending into a segmental right upper and segmental lower lobe pulmonary artery. Other smaller pulmonary emboli are seen within subsegmental branches within the right lower lung as well as subsegmental pulmonary emboli being seen within branches of the left lower lung. Mediastinum and hilar regions show no adenopathy or mass. Mild coronary artery calcification is seen. Heart shows no pericardial thickening. Small portion of the visualized upper abdominal structures are within normal limits. Lung window setting shows no acute parenchymal change within either lung. Bone window settings were reviewed which appear within normal limits for the patient's age. Impression: 1. Fairly extensive pulmonary emboli within the right upper lung and within both lower lungs. 2. Other incidental findings as noted above. - Re-Assessments/Exams Free Text/Narrative Re-Assessment/Exam: 04/20/18 13:18 Reviewed the EKG and labs with patient. Will obtain CT pulmonary angiographic. Patient has for the most part pain-free declines any pain medication at this point. 04/20/18 14:[address] with the patient. Recommending anticoagulation for multiple PEs. Discussed risks and benefits of Coumadin versus finger anticoagulates. Discussed cost, risk of bleeding and reversal agents. Opts to go with a newer agent. Discussed the case with Dr. Fine, hospitalist. Does not feel the patient needs to come in and patient does not want to come into the hospital. He is recommending Eliquis or Xarelto for treatment of PEs. Does not feel that he needs a day additional testing as this was a provoked PE. Recommended stopping aspirin. Discussed with the patient. We will start him on xarelto. Contacted his pharmacy but they were unable to tell me how much the costs would be without having a prescription to run through his insurance. I will start him on xarelto today and have him follow-up in the clinic within 1 week. Tylenol as needed for pain. Discharge instructions as documented. Departure - Departure Time of Disposition: 15:00 Disposition: Home, Self-Care 01 Condition: Fair Clinical Impression: Pulmonary emboli - Discharge Information *PRESCRIPTION DRUG MONITORING PROGRAM REVIEWED*: No *COPY OF PRESCRIPTION DRUG MONITORING REPORT IN PATIENT GEENA: No Prescriptions: Rivaroxaban [Xarelto] 15 mg PO BID #41 tablet Instructions: Pulmonary Embolism Referrals: Ho Rodriguez PA-C [Primary Care Provider] - Rubina Forrest PA-C [Physician Brush Painter] - Forms: ED Department Discharge Additional Instructions: Take the xarelto as prescribed. your first dose was given in the ED today. Start your prescription tomorrow morning. 15 mg twice a day for 21 days. you will then be switched to 20 mg daily for a total of 3 -6 months of treatment. Follow-up with your primary care provider this week or next week for recheck of your symptoms as well as for further prescriptions of the xarelto. [id number] Tylenol as needed for pain. Stop the aspirin you have been taking. Rest. Please return to the ER if your symptoms change or worsen. - My Orders Last 24 Hours: My Active Orders 04/20/18 11:47 Cardiac Monitoring [RC] . DIRECTED EKG Documentation Completion [RC] ASDIRECTED EKG 12 Lead [EK] Stat 04/20/18 11:49 Peripheral IV Care [RC] . DIRECTED Peripheral IV Insertion Adult [OM.PC] Routine - Assessment/Plan Last 24 Hours: My Active Orders 04/20/18 11:47 Cardiac Monitoring [RC] . DIRECTED EKG Documentation Completion [RC] ASDIRECTED EKG 12 Lead [EK] Stat 04/20/18 11:49 Peripheral IV Care [RC] . DIRECTED Peripheral IV Insertion Adult [OM.PC] Routine
[2018-04-20] MEDS ORDERED: Iopamidol 755 MG/ML 50 ML Bottle IVPUSH ONE (13:22)
[2018-04-20] MEDS ORDERED: Iopamidol 755 Mg/ML 100 ML Bottle IVPUSH ONE (13:22)
[2018-04-20] MEDS ORDERED: Sodium Chloride 0.9% 100 ML IV SCH (13:30)
--- NOTE | 2018-04-20 13:53 | CT ---
CT chest Technique: Multiple axial sections were obtained through the chest. Intravenous contrast was utilized. Study has been performed as a pulmonary angiogram protocol. Findings: Filling defect is noted within the distal right main pulmonary artery extending into a segmental right upper and segmental lower lobe pulmonary artery. Other smaller pulmonary emboli are seen within subsegmental branches within the right lower lung as well as subsegmental pulmonary emboli being seen within branches of the left lower lung. Mediastinum and hilar regions show no adenopathy or mass. Mild coronary artery calcification is seen. Heart shows no pericardial thickening. Small portion of the visualized upper abdominal structures are within normal limits. Lung window setting shows no acute parenchymal change within either lung. Bone window settings were reviewed which appear within normal limits for the patient's age. Impression: 1. Fairly extensive pulmonary emboli within the right upper lung and within both lower lungs. 2. Other incidental findings as noted above. Diagnostic code #5
--- NOTE | 2018-04-20 14:34 | CR ---
Chest: Two views of the chest were obtained. Comparison: Prior chest x-ray of 02/17/17. Heart size and mediastinum are within normal limits. Lungs are clear. Bony structures are unremarkable for the patient's age. Impression: 1. Nothing acute is seen on two-view chest x-ray. Diagnostic code #1
[2018-04-20] MEDS ORDERED: Rivaroxaban 10 MG Tab PO ONE (14:58)
[2018-04-20 16:05] VITALS: BP 147/105
== END 2018-04-20 15:28 | disposition home or self-care (01) ==
LOC: JD.ED 10:58
DX: I26.99 Other pulmonary embolism without acute cor pulmonale (principal)
CPT/HCPCS: 36415; 71046; 71275; 80053; 82553; 83880; 84484; 85025; 85379; 85610; 85730; 93005; 99285; A9270; J7030; J7050; Q9967